=== PATIENT | female | born 1995 | race Caucasian/White ===

== ENCOUNTER 2022-01-05 17:24 | Emergency (ER) | payer SELFPAY ==
[2022-01-05] MEDS ORDERED: LORazepam 0.5 MG Tab PO ONE (18:01)
== END 2022-01-05 20:15 | disposition home or self-care (01) ==
LOC: JD.ED 17:24
DX: M79.602 Pain in left arm (principal); F41.9 Anxiety disorder, unspecified
CPT/HCPCS: 36415; 80053; 84439; 84443; 84484; 85025; 85379; 86140; 93005; 99283; A9270

== ENCOUNTER 2023-02-02 14:08 | Emergency (ER) | payer OTHER ==
[2023-02-02 14:59] LABS: BASOPHILS ABSOLUTE AUTO 0.02 K/mm3 (0.01-0.08); BASOPHILS PERCENT AUTO 0.3 % (0.1-1.2); EOSINOPHILS PERCENT AUTO 1.6 (0.7-5.8); HEMATOCRIT 39.4 % (34.1-44.9); HEMOGLOBIN 12.8 gm/dl (11.2-15.7); IMMATURE GRAN ABSOLUTE AUTO 0.01 K/mm3 (0.00-0.10); IMMATURE GRAN PERCENT AUTO 0.2 % (<=1.0); LYMPHOCYTES PERCENT AUTO 46.5 % (19.3-51.7); MEAN CORPUSCULAR HEMOGLOBIN 27.9 pg (25.6-32.2); MEAN CORPUSCULAR HGB CONC 32.5 g/dl (32.2-35.5); MEAN CORPUSCULAR VOLUME 85.8 fl (79.4-94.8); MEAN PLATELET VOLUME 10.1 fl (9.4-12.3); MONOCYTES ABSOLUTE AUTO 0.62 K/mm3 (0.24-0.36); MONOCYTES PERCENT AUTO 9.9 % (4.7-12.5); NEUTROPHILS ABSOLUTE AUTO 2.59 K/mm3 (1.56-6.13); NEUTROPHILS PERCENT AUTO 41.5 % (34.0-71.1); PLATELET COUNT,PLT 346 K/mm3 (182-369); RED BLOOD CELL COUNT 4.59 M/mm3 (3.98-5.22); WHITE BLOOD CELL COUNT,WBC 6.24 K/mm3 (3.98-10.04)
[2023-02-02 15:24] LABS: ALANINE AMINOTRANSFERASE,ALT 44 U/L (14-59); ALBUMIN 3.6 g/dl (3.4-5.0); ALKALINE PHOSPHATASE 62 U/L (46-116); ANION GAP 12.8 (5-15); ASPARTATE AMNIOTRANSFERASE,AST 29 U/L (15-37); BILIRUBIN TOTAL 0.2 mg/dL (0.2-1.0); BLOOD UREA NITROGEN,BUN 14 mg/dL (7-18); CALCIUM 8.6 mg/dL (8.5-10.1); CARBON DIOXIDE,CO2 26 mEq/L (21-32); CHLORIDE,CL 104 mEq/L (98-107); EST CRCL DRUG DOSING (CG) 79.81 mL/min; ESTIMATED GFR 80 mL/min (>60); GLUCOSE RANDOM 108 mg/dL (70-99); POTASSIUM,K 3.8 mEq/L (3.5-5.1); PROTEIN TOTAL,TP 7.4 g/dl (6.4-8.2); SODIUM,NA 139 mEq/L (136-145); TROPONIN I HIGH SENSITIVITY < 4 pg/mL (<=51)
== END 2023-02-02 15:53 | disposition home or self-care (01) ==
LOC: JD.ED 14:08
DX: R07.89 Other chest pain (principal); R06.02 Shortness of breath
CPT/HCPCS: 36415; 71045; 71045-26; 80053; 84484; 85025; 85379; 93010; 99283; 99285

== ENCOUNTER 2023-04-26 20:53 | Emergency (ER) | payer OTHER ==
[2023-04-26] MEDS ORDERED: LORazepam 1 MG Tab PO ONE ×2 (21:30→23:05)
[2023-04-26 22:06] LABS: BASOPHILS ABSOLUTE AUTO 0.1 K/mm3 (0.0-0.2); BASOPHILS PERCENT AUTO 0.8 % (0.0-1.0); EOSINOPHILS ABSOLUTE AUTO 0.1 K/mm3 (0.0-0.4); EOSINOPHILS PERCENT AUTO 1.4 % (0.0-6.0); HEMATOCRIT 39.9 % (37.0-47.0); HEMOGLOBIN 13.2 gm/dl (12.0-16.0); IMMATURE GRAN ABSOLUTE AUTO 0.02 K/mm3 (0.00-0.05); IMMATURE GRAN PERCENT AUTO 0.3 % (0.0-0.4); LYMPHOCYTES ABSOLUTE AUTO 3.9 K/mm3 (1.0-4.8); LYMPHOCYTES PERCENT AUTO 49.3 % (24.0-44.0); MEAN CORPUSCULAR HEMOGLOBIN 28.4 pg (28.0-32.0); MEAN CORPUSCULAR HGB CONC 33.1 g/dl (32.0-36.0); MEAN CORPUSCULAR VOLUME 85.8 fl (83.0-99.0); MEAN PLATELET VOLUME 9.6 fl (9.4-12.3); MONOCYTES ABSOLUTE AUTO 0.7 K/mm3 (0.0-0.8); MONOCYTES PERCENT AUTO 9.3 % (0.0-8.0); NEUTROPHILS ABSOLUTE AUTO 3.1 K/mm3 (1.8-7.7); NEUTROPHILS PERCENT AUTO 38.9 % (41.0-71.0); PLATELET COUNT,PLT 313 K/mm3 (150-400); RED BLOOD CELL COUNT 4.65 M/mm3 (4.10-5.30)
[2023-04-26 22:39] LABS: ALBUMIN 3.7 g/dl (3.4-5.0); ANION GAP 15.7 (5-15); BILIRUBIN TOTAL 0.2 mg/dL (0.2-1.0); EST CRCL DRUG DOSING (CG) 76.71 mL/min; POTASSIUM,K 3.7 mEq/L (3.5-5.1); PROTEIN TOTAL,TP 7.5 g/dl (6.4-8.2)
[2023-04-26] MEDS ORDERED: LORazepam 1 MG Tab ONE (23:08)
== END 2023-04-26 23:16 | disposition home or self-care (01) ==
LOC: JD.ED 20:53
DX: R07.89 Other chest pain (principal)
CPT/HCPCS: 36415; 71046; 80053; 84484; 85025; 85379; 93005; 99285; A9270; 93010; 99282

== ENCOUNTER 2023-12-05 16:03 | Emergency (ER) | payer SELFPAY ==
[2023-12-05] MEDS: Triamcinolone Acetonide 40 MG/ML 1 ML SDV INJECT ONE (17:51)
[2023-12-05] MEDS: Meloxicam 7.5 MG Tab PO ONE (17:53)
[2023-12-05] MEDS: tiZANidine 4 MG Tab PO ONE (17:53)
[2023-12-05] MEDS: Triamcinolone Acetonide 40 MG/ML 1 ML SDV IM ONE (17:53)
== END 2023-12-05 18:57 | disposition home or self-care (01) ==
LOC: JD.ED 16:03
DX: M51.9 Unspecified thoracic, thoracolumbar and lumbosacral intervertebral disc disorder (principal); I10 Essential (primary) hypertension; Z79.899 Other long term (current) drug therapy
CPT/HCPCS: 96372; 99283; A9270; J3301

== ENCOUNTER 2024-02-24 16:09 | Emergency (ER) | payer SELFPAY ==
[2024-02-24] MEDS ORDERED: Sodium Chloride 0.9% 10 ML Syringe FLUSH PRN (17:52)
[2024-02-24] MEDS: Sodium Chloride 0.9% 1,000 ML IV STA (18:12)
[2024-02-24] MEDS: HYDROmorphone 0.5 MG/0.5 ML Syringe IVPUSH ONE (18:14)
[2024-02-24 18:16] LABS: BASOPHILS PERCENT AUTO 0.3 % (0.0-1.0); EOSINOPHILS ABSOLUTE AUTO 0.1 K/mm3 (0.0-0.4); EOSINOPHILS PERCENT AUTO 0.6 % (0.0-6.0); HEMATOCRIT 42.4 % (37.0-47.0); HEMOGLOBIN 13.8 gm/dl (12.0-16.0); IMMATURE GRAN ABSOLUTE AUTO 0.04 K/mm3 (0.00-0.05); IMMATURE GRAN PERCENT AUTO 0.3 % (0.0-0.4); LYMPHOCYTES ABSOLUTE AUTO 1.1 K/mm3 (1.0-4.8); LYMPHOCYTES PERCENT AUTO 9.8 % (24.0-44.0); MEAN CORPUSCULAR HEMOGLOBIN 29.6 pg (28.0-32.0); MEAN CORPUSCULAR HGB CONC 32.5 g/dl (32.0-36.0); MEAN CORPUSCULAR VOLUME 90.8 fl (83.0-99.0); MEAN PLATELET VOLUME 9.6 fl (9.4-12.3); MONOCYTES ABSOLUTE AUTO 0.7 K/mm3 (0.0-0.8); MONOCYTES PERCENT AUTO 5.9 % (0.0-8.0); NEUTROPHILS ABSOLUTE AUTO 9.5 K/mm3 (1.8-7.7); NEUTROPHILS PERCENT AUTO 83.1 % (41.0-71.0); PLATELET COUNT,PLT 337 K/mm3 (150-400); RED BLOOD CELL COUNT 4.67 M/mm3 (4.10-5.30); WHITE BLOOD CELL COUNT,WBC 11.45 K/mm3 (3.9-11.3)
[2024-02-24] MEDS: Metoclopramide 10 MG/2 ML SDV IVPUSH ONE (18:23)
[2024-02-24] MEDS: Pantoprazole 40 MG Vial IVPUSH ONE (18:28)
[2024-02-24] MEDS: Ondansetron 4 MG/2 ML SDV IVPUSH ONE (18:32)
[2024-02-24 18:37] LABS: A/G RATIO 0.9 (1-2); ALBUMIN 3.7 g/dl (3.4-5.0); ANION GAP 15.5 (5-15); BILIRUBIN TOTAL 0.6 mg/dL (0.2-1.0); CREATININE 0.9 mg/dL (0.55-1.02); EST CRCL DRUG DOSING (CG) 87.9 mL/min; PROTEIN TOTAL,TP 7.7 g/dl (6.4-8.2)
[2024-02-24 18:47] LABS: POTASSIUM,K 4.5 mEq/L (3.5-5.1)
== END 2024-02-24 19:50 | disposition home or self-care (01) ==
LOC: JD.ED 16:09
DX: M54.41 Lumbago with sciatica, right side (principal); G89.29 Other chronic pain; R11.2 Nausea with vomiting, unspecified; R10.10 Upper abdominal pain, unspecified; Z79.899 Other long term (current) drug therapy; Z88.8 Allergy status to other drugs, medicaments and biological substances
CPT/HCPCS: 36415; 80053; 83690; 84703; 85025; 96361; 96374; 96375; 99284; 99284-25; C9113; J1170; J2765; J7030

== ENCOUNTER 2024-08-08 13:43 | Emergency (ER) | payer OTHER ==
[2024-08-08] MEDS: Ketorolac 60 MG/2 ML SDV IM ONE (15:39)
[2024-08-08] MEDS: Cyclobenzaprine 10 MG Tab PO ONE (15:47)
[2024-08-08] MEDS: predniSONE 20 MG Tab PO ONE (15:47)
[2024-08-08] MEDS: Acetaminophen/oxyCODONE 325-5 MG Tab PO ONE (15:48)
[2024-08-09] MEDS ORDERED: predniSONE 20 MG Tab PO ONE (15:34)
== END 2024-08-08 16:20 | disposition home or self-care (01) ==
LOC: JD.ED 13:43
DX: M54.41 Lumbago with sciatica, right side (principal); M54.16 Radiculopathy, lumbar region; I10 Essential (primary) hypertension; Z79.899 Other long term (current) drug therapy; Z88.8 Allergy status to other drugs, medicaments and biological substances
CPT/HCPCS: 96372; 99283; A9270; J1885; J7512

== ENCOUNTER 2024-10-04 01:09 | Emergency (ER) | payer OTHER ==
[2024-10-04] MEDS: Cyclobenzaprine 10 MG Tab PO ONE (02:24)
[2024-10-04] MEDS: Ketorolac 30 MG/ML SDV IM ONE (02:30)
[2024-10-04] MEDS: Ketorolac 30 MG/ML SDV IVPUSH ONE (02:31)
[2024-10-04] MEDS: HYDROmorphone 1 MG/ML Syringe IM ONE (03:05)
== END 2024-10-04 04:00 | disposition home or self-care (01) ==
LOC: JD.ED 01:09
DX: M51.9 Unspecified thoracic, thoracolumbar and lumbosacral intervertebral disc disorder (principal); M54.41 Lumbago with sciatica, right side; I10 Essential (primary) hypertension; Z88.8 Allergy status to other drugs, medicaments and biological substances; Z79.899 Other long term (current) drug therapy
CPT/HCPCS: 36415; 84703; 96372; 99283; 99284; A9270-GY; J1171; J1885

== ENCOUNTER 2024-10-05 21:49 | Emergency (ER) | payer OTHER ==
[2024-10-05] MEDS: Acetaminophen/HYDROcodone 325-10 MG Tab PO ONE (22:53)
== END 2024-10-05 22:53 | disposition home or self-care (01) ==
LOC: JD.ED 21:49
DX: M54.50 Low back pain, unspecified (principal); G89.29 Other chronic pain; I10 Essential (primary) hypertension; Z88.8 Allergy status to other drugs, medicaments and biological substances; Z79.899 Other long term (current) drug therapy; Z86.16 Personal history of COVID-19; Z79.84 Long term (current) use of oral hypoglycemic drugs
CPT/HCPCS: 72100; 72100-26; 99283; 99284; A9270-GY

== ENCOUNTER 2024-10-09 09:54 | Emergency (ER) | payer OTHER ==
[2024-10-09] MEDS ORDERED: Naloxone 0.4 MG/ML SDV IVPUSH PRN (10:41)
[2024-10-09] MEDS: Ketorolac 60 MG/2 ML SDV IM ONE (11:09)
[2024-10-09] MEDS: methylPREDNISolone Sodium Succinate 125 MG/2 ML SDV IM ONE (11:11)
[2024-10-09] MEDS: HYDROmorphone 1 MG/ML Syringe IM ONE (11:11)
== END 2024-10-09 11:41 | disposition home or self-care (01) ==
LOC: JD.ED 09:54
DX: M54.16 Radiculopathy, lumbar region (principal); I10 Essential (primary) hypertension; Z88.8 Allergy status to other drugs, medicaments and biological substances; Z79.899 Other long term (current) drug therapy; Z86.16 Personal history of COVID-19; Z87.891 Personal history of nicotine dependence
CPT/HCPCS: 96372; 99283; J1171; J1885; J2919

== ENCOUNTER 2024-10-10 14:25 | Emergency (ER) | payer OTHER ==
[2024-10-10 16:21] LABS: APPEARANCE,URINE CLEAR (Clear); BILIRUBIN,URINE NEGATIVE (Negative); COLOR,URINE YELLOW (Yellow); GLUCOSE,URINE NEGATIVE (Negative); KETONES,URINE NEGATIVE (Negative); LEUKOCYTE ESTERASE,URINE NEGATIVE (Negative); NITRITE,URINE NEGATIVE (Negative); OCCULT BLOOD,URINE NEGATIVE (Negative); PH,URINE 5.5 (5.0-8.0); PROTEIN,URINE 1+ (Negative); UROBILINOGEN,URINE 0.2 (0.2-1.0)
[2024-10-10 16:33] LABS: BACTERIA,URINE MODERATE /hpf (FEW); MUCUS,URINE FEW /hpf (FEW); RBC,URINE 0-5 /hpf (0-5); WBC,URINE 0-5 /hpf (0-5)
[2024-10-10] MEDS: Acetaminophen/HYDROcodone 325-5 MG Tab PO ONE (16:51)
== END 2024-10-10 17:55 | disposition home or self-care (01) ==
LOC: JD.ED 14:25
DX: M48.061 Spinal stenosis, lumbar region without neurogenic claudication (principal); M54.41 Lumbago with sciatica, right side; M54.42 Lumbago with sciatica, left side; I10 Essential (primary) hypertension; Z86.16 Personal history of COVID-19; Z88.8 Allergy status to other drugs, medicaments and biological substances; Z79.899 Other long term (current) drug therapy
CPT/HCPCS: 72131; 81001; 99284; A9270

== ENCOUNTER 2024-10-14 18:32 | Emergency (ER) | payer OTHER ==
[2024-10-14] MEDS: Acetaminophen/HYDROcodone 325-5 MG Tab PO ONE (19:42)
== END 2024-10-14 20:00 | disposition home or self-care (01) ==
LOC: JD.ED 18:32
DX: S93.402A Sprain of unspecified ligament of left ankle, initial encounter (principal); F41.9 Anxiety disorder, unspecified; I10 Essential (primary) hypertension; K21.9 Gastro-esophageal reflux disease without esophagitis; Z86.16 Personal history of COVID-19; Z88.8 Allergy status to other drugs, medicaments and biological substances; Z79.899 Other long term (current) drug therapy; W01.0XXA Fall on same level from slipping, tripping and stumbling without subsequent striking against object, initial encounter
CPT/HCPCS: 73610-26-LT; 73610-LT; 99283; 99284; A9270-GY

== ENCOUNTER 2025-07-21 05:31 | Emergency (ER) | payer SELFPAY | END 2025-07-21 06:35 | disposition home or self-care (01) | LOC: JD.ED 05:31 | DX: S93.402A Sprain of unspecified ligament of left ankle, initial encounter (principal); S63.502A Unspecified sprain of left wrist, initial encounter; S39.012A Strain of muscle, fascia and tendon of lower back, initial encounter; I10 Essential (primary) hypertension; K21.9 Gastro-esophageal reflux disease without esophagitis; Z86.16 Personal history of COVID-19; Z88.8 Allergy status to other drugs, medicaments and biological substances; Z79.899 Other long term (current) drug therapy; W00.0XXA Fall on same level due to ice and snow, initial encounter; Y93.89 Activity, other specified | CPT/HCPCS: 73110; 73610; 99283; A9270 ==